=== PATIENT | female | born 1985 | race Caucasian/White ===

== ENCOUNTER 2022-05-06 09:55 | Emergency (ER) | payer MEDICAID, OTHER ==
--- NOTE | 2022-05-06 10:47 | NUR ---
CALLED IN ED WAIITNG ROOM, NO RESPONSE. PEOPLE AT THE WAITING ROOM STATE PATIENT WAS IN THE BATHROOM.
--- NOTE | 2022-05-06 11:04 | NUR ---
PT CALLED IN ED WAITING ROOM. NOT SEEN. LEFT BEFORE BEING TRIAGED
== END 2022-05-06 11:09 | disposition left against medical advice (07) ==
LOC: ER 10:00
DX: Z53.21 Procedure and treatment not carried out due to patient leaving prior to being seen by health care provider (principal)